=== PATIENT | male | born 1965 | race Caucasian/White ===

== ENCOUNTER 2017-02-09 14:29 | Emergency (ER) | payer BC ==
[~2017-02-09] VITALS: Ht 175.2 cm; Wt 66.7 kg
[2017-02-09] MEDS ORDERED: METOCLOPRAMIDE H5 M2 PO (15:18)
[2017-02-09] MEDS ORDERED: LISINOPRIL20 MG PO (15:18)
[2017-02-09] MEDS ORDERED: ATORVASTATIN CA40 M1 PO (15:19)
[2017-02-09] MEDS ORDERED: LANTUS SOLOS100 U/M1 SC (15:19)
[2017-02-09] MEDS ORDERED: HUMALOG100 UNIT/1 SQ (15:20)
[2017-02-09] MEDS ORDERED: ZOFRAN4 MG PO (15:35)
== END 2017-02-09 15:37 | disposition home or self-care (01) ==
LOC: ED 14:29
DX: R42 Dizziness and giddiness (principal); Z79.899 Other long term (current) drug therapy

== ENCOUNTER 2017-04-18 18:07 | Emergency (ER) | payer BC ==
[~2017-04-18] VITALS: Ht 175.2 cm; Wt 61.2 kg
--- NOTE | ~2017-04-18 | EKG ---
[place], [place] ELECTROCARDIOGRAM REPORT NAME: PRESTON SALINAS UNIT #: [id number] ROOM: DOCTOR: VIDHI DOMINGUEZ MD BIRTHDATE: [birth year] DOS: 04/18/2017 TIME: 1902 hours. Normal sinus rhythm at 76 beats per minute. The tracing is normal. No previous tracing is available for comparison. VIDHI DOMINGUEZ MD CM:EKGRPT:ELECTROCARDIOGRAM REPORT [id number] VIDHI DOMINGUEZ MD
[~2017-04-18 18:07] MED LIST: ATORVASTATIN CA40 M1 PO; HUMALOG100 UNIT/1 SQ; LANTUS SOLOS100 U/M1 SC; LISINOPRIL20 MG PO; METOCLOPRAMIDE H5 M2 PO; ZOFRAN4 MG PO
[2017-04-18 19:12] LABS: BASO % 0.2 % (0.0-1.0); EOS # 0.1 10*3/uL (0.0-0.4); EOS % 0.6 % (1.0-4.0); HEMATOCRIT 38.1 % (42.0-52.0); HEMOGLOBIN 13.1 g/dl (14.0-18.0); LYMPH # 1.6 10*3/uL (1.3-4.4); LYMPH % 12.7 % (27.0-41.0); MEAN CELL VOLUME 91.8 fl (80.0-94.0); MEAN CORPUSCULAR HGB 31.6 pg (27.0-31.0); MEAN CORPUSCULAR HGB CONC 34.4 g/dl (33.0-37.0); MEAN PLATELET VOLUME 13.2 fl (9.6-12.3); MONO # 1.1 10*3/uL (0.1-1.0); MONO % 8.7 % (3.0-9.0); NEUT # 9.8 10*3/uL (2.3-7.9); NEUT % 77.3 % (47.0-73.0); PLATELET COUNT AUTOMATED 167 10*3/uL (130-400); RED BLOOD COUNT 4.15 10*6/uL (4.50-5.90); RED CELL DISTRI WIDTH 12.7 % (0-14.5); WHITE BLOOD COUNT 12.7 10*3/uL (4.8-10.8)
[2017-04-18 19:25] LABS: ACT PARTIAL THROMBO TIME 23.9 SECONDS (20.8-31.5)
[2017-04-18 19:40] LABS: ALBUMIN 3.5 gm/dl (3.1-4.5); ALKALINE PHOSPHATASE 98 U/L (45-117); BUN 26 mg/dl (7-24); CHLORIDE 99 mmol/L (98-107); CKMB 1.6 ng/ml (0.5-3.6); CPK 98 U/L (39-308); CREATININE 1.04 mg/dL (0.70-1.30); LIPASE 98 U/L (73-393); MAGNESIUM 1.8 mg/dL (1.5-2.1); POTASSIUM 4.7 mmol/L (3.5-5.1); SGOT/AST 29 IU/L (3-35); SGPT/ALT 56 U/L (12-78); SODIUM 133 mmol/L (136-145); TOTAL PROTEIN 6.8 gm/dL (6.4-8.2)
[2017-04-18 19:41] LABS: TROPONIN I < 0.015 ng/ml (<0.045)
[2017-04-18 19:48] LABS: BILIRUBIN NEGATIVE (NEGATIVE); BLOOD NEGATIVE (NEGATIVE); CLARITY CLEAR (CLEAR); COLOR YELLOW (YELLOW); GLUCOSE 3+ (NEGATIVE); KETONE NEGATIVE (NEGATIVE); LEUKO ESTERASE NEGATIVE (NEGATIVE); NITRITE NEGATIVE (NEGATIVE); SPECIFIC GRAVITY 1.015 (1.005-1.030); UROBILINOGEN 0.2 E.U./dl (0.2-1.0)
[2017-04-18 20:12] LABS: BACTERIA TRACE; WBC 0-2 wbc/hpf (0-5)
== END 2017-04-18 23:16 | disposition home or self-care (01) ==
LOC: ED 18:07
PROVIDERS: Nurse Practitioner Family
DX: H81.03 Meniere's disease, bilateral (principal); Z79.899 Other long term (current) drug therapy